=== PATIENT | male | born 1985 | race Caucasian/White ===

== ENCOUNTER 2016-09-04 14:29 | Inpatient (IN) | payer OTHER ==
[~2016-09-04] VITALS: Ht 180.3 cm; Wt 77.1 kg
--- NOTE | ~2016-09-04 | DS ---
Unit #: [id number] #: [id number] Patient: LILIA PEARCE [id number] [facility] [address] [place] [address] [id number] I MR#: [id number] NAME: LILIA PEARCE. ROOM: [facility] Age: 30 Sex: M Admission Date: 09/04/2016 : 1985 Discharge Date: 09/07/2016 Attending Physician: Ashish Lilly M.D. Primary Care Physician: No Primary Care Physician DISCHARGE SUMMARY REASON FOR ADMISSION The patient is a 30-year-old white male admitted after he allegedly made homicidal threats toward a neighbor while participating in the intensive outpatient program. HOSPITAL COURSE The patient was admitted to the [address] [place] [address] unit and placed on suicide precautions. He demanded discharge from the hospital after learning that this physician would not restart Neurontin or "something for my (1) nerves." This physician had planned to discharge the patient but was informed by staff in the partial hospitalization program that the patient had made homicidal threats toward a neighbor. The patient vehemently denied having made such threats but was observed for a 72-hour period. During that time, he consistently denied suicidal ideation. He was contrite over his behavior on September 06 and agreeable to initiation of Seroquel 100 mg t.i.d. which he tolerated without complaint. By August 08, the patient had consistently denied. He requested discharge on that date and it was ordered. FINAL DIAGNOSES 1. Methamphetamine use disorder. 2. Psychotic disorder, unspecified. 3. Antisocial personality disorder. DISPOSITION ON DISCHARGE The patient is discharged home on the following medication. DISCHARGE MEDICATION Seroquel 100 mg three times daily. DIET AND ACTIVITY No dietary or physical restrictions were placed on the patient. PROGNOSIS At the time of discharge, his prognosis remains guarded. FOLLOWUP Followup will take place in the chemical dependence intensive outpatient program. Unit #: [id number] #: [id number] Patient: LILIA PEARCE Dictated by... Ashish Lilly M.D. CB/vick TD: 09/08/2016 09:10 JOB #: [id number] DISCHARGE SUMMARY Page 1 of 1 X Ashish Lilly MD DISCHARGE SUMMARY
--- NOTE | ~2016-09-04 | PA ---
Unit #: [id number] #: [id number] Patient: LILIA PEARCE [id number] [facility] [address] [place] [address] [id number] I MR#: [id number] NAME: LILIA PEARCE. ROOM: [facility] Age: 30 Sex: M Admission Date: 09/04/2016 : 1985 Date of Assessment: 09/05/2016 Attending Physician: Ashish Lilly M.D. Admitting Physician: Ashish Lilly M.D. Primary Care Physician: Primary Care Physician No PSYCHIATRIC ASSESSMENT REASON FOR ADMISSION The patient is a 30-year-old white male admitted to the [address] [place] [address] after he had made homicidal threats while participating in the intensive outpatient program. INFORMANT(S) 1. Patient and chart, reliability fair. 2. This physician has also discussed the patient's case with the patient's outpatient therapist in the intensive outpatient program, reliability good. CHIEF COMPLAINT None given. HISTORY OF PRESENT ILLNESS The patient is a 30-year-old white male admitted directly from the intensive outpatient program where he yesterday had been making homicidal threats towards a neighbor and claiming to experiencing auditory and visual hallucinations. The patient now claims that he made no such threats but states that he came to this facility to "get my life together and shit." The patient had previously been seen on 08/16/2016 and at that time had been continued on previously prescribed Zyprexa. He had been quite angry that this physician had not continued Neurontin which he had previously taken. This medication was stopped given the patient's extensive substance abuse history. The patient is today demanding discharge from the hospital and is again profane and insulting towards this physician. Initial plans were made to discharge the patient given his lack of investment in treatment and verbal abuse of staff and this physician. However, this physician has been made aware that the patient has been making homicidal threats towards a neighbor and thus we will need to watch the patient for at least 72 hours. For a more complete history of present illness, please refer to previous dictated notes. PAST PSYCHIATRIC HISTORY Reviewed, no changes. FAMILY HISTORY/SOCIAL HISTORY Reviewed, no changes. MEDICAL HISTORY Reviewed, no changes. MEDICATION HISTORY Unit #: [id number] #: [id number] Patient: LILIA PEARCE At the time of admission, the patient was prescribed Zyprexa. ALLERGIES None reported. MENTAL STATUS EXAM At this time, reveals the patient to be a thin, heavily tattooed white male appearing his stated age. He is in no apparent physical distress at the time of the examination. He is awake, alert and oriented in all spheres. His mood is angry. His affect irritable. Speech is generally relevant and coherent. There are no gross deficits in memory or cognition noted. Intelligence is judged to be in the average range based on fund of knowledge. The patient is less than optimally cooperative during interview. He is currently denying suicidal/homicidal ideation or any psychotic symptoms. His judgement and insight appear to be reasonably intact. ASSETS AND LIABILITIES Patient's assets to be assessed. Liabilities, ongoing substance use, profound sociopathy. ADMITTING DIAGNOSES 1. Methamphetamine use disorder. 2. Opioid use disorder. 3. Cannabis use disorder. 4. Antisocial personality disorder. PSYCHIATRIC PLAN/TREATMENT GOALS The patient remains hospitalized for safety and stabilization given homicidal threats made. Routine duty to warn will be attended to and the patient will be observed for a full 72 hour period. I will at this point not continue previously prescribed Zyprexa for the patient and Neurontin will certainly be discontinued given the patient's extensive substance abuse history. The patient expresses extreme anger at this physician today given this physician's refusal to provide him "something for my fucking nerves." I have explained to the patient that prescriptions of Neurontin or any other such scheduled substance and certainly benzodiazepines is contraindicated in his case given his extensive substance abuse history. I have offered to switch to Seroquel which the patient has refused. I will at this point discontinue Seroquel and for the time being provide p.r.n. Thorazine for agitation and anxiety. ESTIMATED LENGTH OF STAY Three days. Dictated by... Ashish Lilly M.D. CB/ruben TD: 09/05/2016 15:06 JOB #: [id number] Unit #: [id number] #: [id number] Patient: LILIA PEARCE PSYCHIATRIC ASSESSMENT Page 1 of 1 X Ashish Lilly MD PSYCHIATRIC ASSESSMENT
--- NOTE | ~2016-09-04 | PN ---
Unit #: [id number] #: [id number] Patient: LILIA PEARCE [id number] [facility] [address] [place] [address] [id number] I MR#: [id number] NAME: LILIA PEARCE. ROOM: [facility] Age: 30 Sex: M Admission Date: 09/04/2016 : 1985 Attending Physician: Ashish Lilly M.D. Admitting Physician: Ashish Lilly M.D. Primary Care Physician: Primary Care Physician Yamila ARANGO PROGRESS NOTES DATE 09/06/2016 DISCUSSION The patient is conciliatory today after yesterday's disgraceful behavior. He is requesting initiation of Seroquel and we will start this medication at 100 mg t.i.d. The patient vehemently denies any homicidal ideation stating that in fact it is his neighbor who is threatening to kill him. Dictated by... Ashish Lilly M.D. CB/ruben TD: 09/06/2016 15:44 JOB #: [id number] [facility] PROGRESS NOTES Page 1 of 1 X Ashish Lilly MD PROGRESS NOTE
--- NOTE | ~2016-09-04 | HP ---
Unit #: [id number] #: [id number] Patient: LILIA PEARCE [id number] [place] [address] [id number] I MR#: [id number] NAME: LILIA PEARCE. ROOM: [facility] Age: 30 Sex: M Admission Date: 09/04/2016 : 1985 Attending Physician: Ashish Lilly M.D. Admitting Physician: Ashish Lilly M.D. Primary Care Physician: Primary Care Physician No HISTORY AND PHYSICAL HISTORY OF PRESENT ILLNESS Lilia is a 30-year-old male admitted on 09/04/[address] [place] [address] for psychosis. PAST MEDICAL HISTORY None. PAST SURGICAL HISTORY Lumbar disc fusion and right hand surgical repair after an injury. SOCIAL HISTORY Smokes four to five cigarettes daily. No alcohol use. Does report daily use of ice and pain pills. He is currently single and living with his brother. FAMILY HISTORY Noncontributory. REVIEW OF SYSTEMS CONSTITUTIONAL: No fever or chills. HEENT: Denies any sore throat, ear pain or runny nose. CARDIOVASCULAR: Denies chest pain, irregular heart rhythm or palpitations. CHEST: Denies shortness of breath or cough. No hemoptysis. GASTROINTESTINAL: Denies nausea, vomiting, diarrhea or chronic constipation. ENDOCRINE: Denies history of increased thirst or urination. No recent significant weight loss or gain. GENITOURINARY: Denies dysuria, frequency, or hematuria. SKIN: Denies any rashes. HEMATOLOGIC: Denies history of increased bleeding or bruising. MUSCULOSKELETAL: Denies any hot, swollen joints. No generalized muscle pain. NEUROLOGIC: Denies problems with vision or speech. No frequent, severe headaches. No numbness, tingling or weakness in any extremities. Denies loss of bladder or bowel control. CURRENT MEDICATIONS Zyprexa, Neurontin, Zofran, Bentyl, vistaril. ALLERGIES No known drug allergies. Unit #: [id number] #: [id number] Patient: LILIA PEARCE PHYSICAL EXAMINATION GENERAL: Alert, oriented, in no acute distress. VITAL SIGNS: Blood pressure 137/96, heart rate 128, HEIGHT: 5 foot 11 inches. WEIGHT: 168 pounds. SKIN: Warm and dry without rash or lesion. HEENT: Normocephalic. TMs not viewed. Oral and nasal passages clear. Conjunctivae clear. PERRLA. EOMs intact. NECK: Supple without lymphadenopathy or thyromegaly. HEART: Regular rate and rhythm without murmur. LUNGS: Clear. ABDOMEN: Soft, nontender, without masses or hepatosplenomegaly. : Not done. EXTREMITIES: No evidence of cyanosis, clubbing or edema. Moves all without focal deficit. NEUROLOGICAL: Grossly within normal limits. Cranial Nerves: II: Visual reyes are intact. III, IV AND : Extraocular movements are intact. Pupils are equal, round and reactive to light. V: Facial sensation is grossly normal. VII: Facial movements and expression are normal. VIII: Auditory acuity grossly intact. IX, X: Uvula is midline. Phonation is normal. XI: Patient shrugs shoulders and turns head normally. XII: Tongue protrudes in the midline. Sensory and Motor Function: Sensory and motor sensation is grossly normal. Motor: moves all extremities well. Coordination: Gait is normal. Deep Tendon Reflexes: Intact. IMPRESSION Psychiatric admission. RECOMMENDATIONS Psychiatric, per psychiatrist. MEDICAL: I see no contraindications to participating in facility's activities. MEDICAL PROGNOSIS Good. MEDICAL CONDITION Stable. Dictated by... Enmanuel Lopez/everett TD: 09/05/2016 01:02 JOB #: [id number] Unit #: [id number] #: [id number] Patient: LILIA PEARCE HISTORY AND PHYSICAL Page 1 of 1 X ROGERS SPAULDING APRN HISTORY AND PHYSICAL
[~2016-09-04 14:29] MED LIST: ERYTHROMYCIN O3.5 GM OU; KEFLEX500 MG PO; NO MEDICATIONS; PRILOSEC20 MG PO
[2016-09-05 09:48] LABS: BASOPHIL# 0.1 X10e3 (0-0.3); BASOPHIL% 1.3 % (0-2.5); EOSINOPHIL# 0.1 X10e3 (0-0.7); EOSINOPHIL% 1.7 % (0.0-7.0); HEMATOCRIT 43.9 % (38.0-50.0); LYMPHOCYTE# 1.8 X10e3 (1.0-3.5); LYMPHOCYTE% 34.4 % (17.0-45.0); MEAN CELL VOLUME 95.2 FL (83-96); MEAN CORPUSCULAR HEMOGLOBIN 32.5 PG (28-34); MEAN CORPUSCULAR HGB CONC 34.2 g/dL (30-36); MEAN PLATELET VOLUME 8.7 FL (6.5-11.5); MONOCYTE# 0.5 X10e3 (0-1.0); MONOCYTE% 10.1 % (3.0-12.0); NEUTROPHIL# 2.8 X10e3 (1.5-7.1); NEUTROPHIL% 52.5 % (40-75); PLATELET COUNT 233 X10e3 (140-420); RED BLOOD COUNT 4.61 X10e (3.90-5.60); RED CELL DISTRIBUTION WIDTH 13.2 % (11.0-15.5); WHITE BLOOD COUNT 5.3 X10e3 (4.0-10.5)
[2016-09-05 09:50] LABS: DIFF IND NO
[2016-09-05 10:13] LABS: THYROID STIMULATING HORMONE 0.96 uIU/ml (0.34-5.60)
[2016-09-05 10:19] LABS: ALBUMIN SERUM 4.4 g/dL (3.5-5.0); BILIRUBIN,TOTAL 1.3 mg/dL (0.2-2.0); BUN/CREATININE RATIO 22.85; CALCIUM SERUM 9.6 mg/dL (8.4-10.2); CREATININE SERUM 0.7 mg/dL (0.6-1.4); GLOM FILT RATE Estimated 124.9 mL/min (>60); POTASSIUM 4.4 mmol/L (3.5-5.1); PROTEIN TOTAL SERUM 7.7 g/dL (6.0-8.3)
[2016-09-05 10:20] LABS: FREE THYROXIN (T4) 1.11 ng/dL (0.58-1.64)
== END 2016-09-07 12:39 | disposition home or self-care (01) | DRG 897 ==
LOC: P1S 14:29
PROVIDERS: Specialist
DX: F15.10 Other stimulant abuse, uncomplicated (principal); F11.10 Opioid abuse, uncomplicated; F12.10 Cannabis abuse, uncomplicated; F60.2 Antisocial personality disorder
CPT/HCPCS: 80053; 84439; 84443; 85025

== ENCOUNTER 2016-09-10 17:10 | Inpatient (IN) | payer OTHER ==
[~2016-09-10] VITALS: Ht 180.3 cm; Wt 80.7 kg
--- NOTE | ~2016-09-10 | PN ---
Unit #: [id number] #: [id number] Patient: LILIA PEARCE [id number] [facility] [address] [place] [address] [id number] I MR#: [id number] NAME: LILIA PEARCE. ROOM: [facility] Age: 30 Sex: M Admission Date: 09/10/2016 : 1985 Attending Physician: Ashish Lilly M.D. Admitting Physician: Ashish Lilly M.D. Primary Care Physician: Primary Care Physician Yamila ARANGO PROGRESS NOTES DATE 09/12/2016 DISCUSSION The patient complains of some sedation today with the increased dose of Seroquel but seems less paranoid and is cordial in his interactions with this physician. We continue current treatment. Dictated by... Ashish Lilly M.D. CB/bzg TD: 09/12/2016 14:35 JOB #: [id number] PROGRESS NOTES Page 1 of 1 X Ashish Lilly MD X PROGRESS NOTE
--- NOTE | ~2016-09-10 | DS ---
Unit #: [id number] #: [id number] Patient: LILIA PEARCE [id number] [facility] [address] [place] [address] [id number] MR#: [id number] NAME: LILIA PEARCE. ROOM: [facility] Age: 30 Sex: M Admission Date: 09/10/2016 : 1985 Discharge Date: 09/13/2016 Attending Physician: Ashish Lilly M.D. Primary Care Physician: Primary Care Physician No DISCHARGE SUMMARY REASON FOR ADMISSION The patient is a 30-year-old white male, admitted with the recurrence of psychosis. DIAGNOSTIC STUDIES The patient again refused to provide a urine sample for urinalysis. HOSPITAL COURSE The patient was admitted to the [address] [place] [address] unit and placed on suicide precautions. Seroquel was increased to 200 mg three times a day, given the patient's ongoing mood instability and complaints of paranoia. It remains the feeling of this physician that the patient's symptoms may be attributable to his history of methamphetamine abuse; however, the patient denies this. Whatever the case, he did seem to do well with the increased Seroquel dose and requested discharge on 09/13/2016 and it was so ordered. DISCHARGE DIAGNOSES [place] I Methamphetamine use disorder. Psychotic disorder, unspecified. [place] II [place] III [place] IV [place] V DISPOSITION ON DISCHARGE The patient is discharged on the following medications: 1. Seroquel 200 mg three times daily for psychosis 2. Ultram 50 mg q.6h p.r.n. for tooth pain DIET AND ACTIVITY No dietary or physical restrictions were placed on the patient at the time of discharge. Follow will take place through the auspices of community mental health resources and the chemical dependency outpatient program. Dictated by... Ashish Lilly M.D. Unit #: [id number] #: [id number] Patient: LILIA PEARCE LISSET/anabela TD: 09/16/2016 08:25 JOB #: [id number] DISCHARGE SUMMARY Page 1 of 1 X Ashish Lilly MD X DISCHARGE SUMMARY
--- NOTE | ~2016-09-10 | PA ---
Unit #: [id number] #: [id number] Patient: LILIA PEARCE [id number] [facility] [address] [place] [address] [id number] I MR#: [id number] NAME: LILIA PEARCE. ROOM: [facility] Age: 30 Sex: M Admission Date: 09/10/2016 : 1985 Date of Assessment: 09/11/2016 Attending Physician: Ashish Lilly M.D. Admitting Physician: Ashish Lilly M.D. Primary Care Physician: Primary Care Physician No PSYCHIATRIC ASSESSMENT IDENTIFYING INFORMATION The patient is a 30-year-old white male admitted with recurrence of paranoid delusional thinking. CHIEF COMPLAINT None given. INFORMANT(S) Patient and chart, reliability fair. HISTORY OF PRESENT ILLNESS The patient is a 30-year-old white male just discharged from this facility. The patient voiced reporting increasing paranoid thinking regarding his mother and sister at the time of admission to this hospital. During previous hospitalizations, the patient has been noted to be med-seeking and demanding to be "something for my nerves." During this hospitalization, however, the patient is reporting jeremy psychotic thinking since voicing fears that family members have "put out a hit on him." The patient denies that he has been abusing any psychoactive substances though he does have an extensive substance abuse history. For more complete history of present illness, please refer to previously dictated notes. PAST PSYCHIATRIC HISTORY Please refer to previously dictated notes. PAST MEDICAL HISTORY Reviewed, no changes. MEDICATION(S) Seroquel. ALLERGIES None. FAMILY HISTORY Reviewed, no changes. SOCIAL HISTORY Reviewed, no changes. MENTAL STATUS EXAMINATION Examination at this time reveals the patient to be a thin white male appearing stated age. He is in no apparent physical distress at the time Unit #: [id number] #: [id number] Patient: LILIA PEARCE of examination. He is awake, alert, and oriented in all spheres. His mood is anxious and dysphoric, his affect labile. Speech is generally well-coherent. There are no gross deficits in memory or cognition noted. Intelligence is judged to be in the average range based on fund of knowledge. The patient is cooperative throughout the interview. He is currently denying suicidal or homicidal ideation but does report positive psychotic thinking as described previously. His judgment and insight appear to be significantly impaired. ASSETS AND LIABILITIES The patient's assets are to be assessed. Liabilities: (1) __ sociopathy with ongoing substance use. DIAGNOSTIC IMPRESSION 1. Methamphetamine use disorder. 2. Psychotic disorder unspecified. TREATMENT PLAN The patient remains hospitalized for safety and stabilization. I will increase Seroquel to 200 mg 3 times daily in hopes of addressing the patient's psychotic symptoms. It is unclear whether these symptoms represent a true psychotic illness or as is more likely the case are a result of his ongoing abuse of methamphetamine. Whatever the case, he should respond well, to upward titration of Seroquel. ESTIMATED LENGTH OF STAY 5 to 7 days. Dictated by... Ashish Lilly M.D. Kenny TD: 09/11/2016 14:13 JOB #: [id number] PSYCHIATRIC ASSESSMENT Page 1 of 1 X Ashish Lilly MD X PSYCHIATRIC ASSESSMENT
--- NOTE | ~2016-09-10 | HP ---
Unit #: [id number] #: [id number] Patient: LILIA PEARCE [id number] [facility] [address] [place] [address] [id number] I MR#: [id number] NAME: LILIA PEARCE ROOM: [facility] Age: 30 Sex: M Admission Date: 09/10/2016 : 1985 Attending Physician: Ashish Lilly M.D. Admitting Physician: Ashish Lilly M.D. Primary Care Physician: Primary Care Physician No HISTORY AND PHYSICAL Lilia is a 30 year old admitted to [address] [place] [address] with psychotic behavior. He thinks someone named Grant is following him. He was recently discharged from this facility after treatment for the same. Patient was seen and H and P dated 09/04/16 was reviewed. This is current. No changes. Please see H and P dated 09/04/16. Dictated by... Zaynab Dugan P.A.-C. for Sandra Payne/ruben TD: 09/11/2016 22:46 JOB #: [id number] HISTORY AND PHYSICAL Page 1 of 1 X Zaynab Dugan HISTORY AND PHYSICAL
[2016-09-11 11:20] LABS: AMPHETAMINE NEG (NEG); BARBITURATES NEG (NEG); BENZODIAZEPINES NEG (NEG); COCAINE NEG (NEG); MARIJUANA POS (NEG); OPIATES NEG (NEG); TRICYCLIC ANTIDEPRESSANTS POS (NEG); U METHADONE NEG (NEG)
== END 2016-09-13 16:20 | disposition home or self-care (01) | DRG 897 ==
LOC: P1S 18:35
PROVIDERS: Specialist
DX: F15.10 Other stimulant abuse, uncomplicated (principal); F23 Brief psychotic disorder
CPT/HCPCS: 80307

== ENCOUNTER 2016-09-25 22:08 | Emergency (ER) | payer OTHER ==
[~2016-09-25] VITALS: Ht 180.3 cm; Wt 72.6 kg
[2016-09-25] MEDS ORDERED: NEURONTIN300 MG PO (22:22)
[2016-09-25] MEDS ORDERED: ULTRAM PO (22:22)
[2016-09-25] MEDS ORDERED: SEROQUEL XR200 MG PO (22:22)
== END 2016-09-25 22:35 | disposition home or self-care (01) ==
LOC: SED 22:08
DX: T40.1X1A Poisoning by heroin, accidental (unintentional), initial encounter (principal); F20.9 Schizophrenia, unspecified; F17.210 Nicotine dependence, cigarettes, uncomplicated
CPT/HCPCS: 99283